=== PATIENT | male | born 1975 | race Caucasian/White ===

== ENCOUNTER 2016-12-06 01:11 | Emergency (ER) | payer OTHER ==
[~2016-12-06] VITALS: Ht 175.3 cm; Wt 108.4 kg
[2016-12-06 01:17] VITALS: TEMP 36.6; Ht 175.3 cm; Wt 108.4 kg
[2016-12-06 01:47] VITALS: O2SAT 95
[2016-12-06 01:50] LABS: BASO % 0.3 %; BASO ABS # 0.03 K/uL (0-0.2); COMPLETE YES; EOS % 1.8 %; HEMATOCRIT 41.9 % (42-52); IG% 0.2 %; LYMPH % 23.9 %; LYMPH ABS # 2.23 K/uL (1.2-3.4); MEAN CORPUSCULAR HEMOGLOBIN 29.6 pg (25-34); MEAN CORPUSCULAR HGB CONC 34.8 g/dl (32-36); MEAN PLATELET VOLUME 11.2 fL (7.4-10.4); MONO % 8.8 %; PLATELET COUNT 201 K/uL (130-400); RED BLOOD COUNT 4.93 M/uL (4.7-6.1); WHITE BLOOD COUNT 9.32 K/uL (4.8-10.8)
[2016-12-06 02:19] LABS: ALT/SGPT 73 U/L (12-78); AST/SGOT 35 U/L (15-37); BLOOD UREA NITROGEN 22 mg/dl (7-18); BUN/CREATININE RATIO 14.7 (10-20); CALCIUM 9.3 mg/dl (8.5-10.1); CARBON DIOXIDE 28 mmol/L (21-32); CHLORIDE 104 mmol/L (98-107); GLUCOSE 153 mg/dl (70-99); MAGNESIUM 1.7 mg/dl (1.8-2.4); POTASSIUM 3.5 mmol/L (3.5-5.1); SODIUM 141 mmol/L (136-145)
[2016-12-06] MEDS ORDERED: ONDANSETRON INJ 2 MG/ML 2 ML VIAL IV STA (02:22)
[2016-12-06] MEDS ORDERED: MoRPHine SULFATE 4 MG/ML 1 ML CARP\\VIAL IV STA (02:22)
[2016-12-06 02:27] LABS: ALKALINE PHOSPHATASE 73 U/L (45-117); CKMB/CK RATIO 0.8 (0-3.0)
[2016-12-06] MEDS ORDERED: LSN40 PO (02:29)
[2016-12-06] MEDS ORDERED: METF-384 PO (02:29)
[2016-12-06] MEDS ORDERED: PRLSR20 PO (02:29)
[2016-12-06] MEDS ORDERED: FLUO20CA35 PO (02:29)
[2016-12-06] MEDS ORDERED: GLIP10TA3 PO (02:29)
[2016-12-06] MEDS ORDERED: POTA1TAB97 PO (02:29)
[2016-12-06] MEDS ORDERED: ATOR-26 PO (02:29)
[2016-12-06] MEDS ORDERED: GABA-113 PO (02:29)
[2016-12-06] MEDS ORDERED: ATEN-171 PO (02:33)
[2016-12-06] MEDS ORDERED: AMLO10TA2 PO (02:33)
[2016-12-06] MEDS ORDERED: PRAZ1CAP10 PO (02:33)
[2016-12-06] MEDS ORDERED: OXYC1CAP5 PO (02:33)
[2016-12-06] MEDS ORDERED: MIRT15TA PO (02:33)
[2016-12-06] MEDS ORDERED: NZRCR TOP (02:38)
[2016-12-06] MEDS ORDERED: HYDR1OIN TOP (02:38)
[2016-12-06 03:13] VITALS: BP 134/72; PULSE 78; O2SAT 98
--- NOTE | 2016-12-06 03:17 | EMERGENCY ROOM VISIT NOTE ---
History First contact with patient: :27 Chief Complaint: SYNCOPE Stated Complaint: SYNCOPE Nursing Triage Summary: see triage note History of Present Illness The patient is a 41 year old male who presents to the Emergency Room with complaints of recurrent syncope for the past 4 years who tonight had a syncopal episode and hit his head and back. He states when he passed out he was mildly confused afterwards. He is on chronic narcotics for his pain. Patient had an extensive workup and states they're unsure why he keeps on having syncopal episodes. He does have severe PTSD and TBI from the . He follows at the [facility]. Patient went to [facility] earlier and was dissatisfied with their care and came here. He had a CT scan and blood work. He states his creatinine normally runs around 1.5. Patient complains of a headache and upper back pain. Patient denies neck pain, spinal pain, numbness, tingling, abdominal pain, fever, chills. Patient states 2 weeks ago he hit his head 3 times in a row and had a severe headache after that. He had a negative CT scan than too. He's had multiple CT scans in the past. Review of Systems See HPI for pertinent positives & negatives. A total of 10 systems reviewed and were otherwise negative. Past Medical/Surgical History PTSD, TBI, syncope, diabetes, renal insufficiency Social History Smoking Status: Never Smoker Smokeless Tobacco Use: No Drug Use: none Marital Status: Housing Status: lives with family Occupation Status: disabled Current/Historical Medications Scheduled Amlodipine Besylate (Norvasc), 10 MG PO HS Atenolol/Chlorthalidone (Tenoretic 50 Mg/25 Mg), 1 TAB PO BID Atorvastatin (Lipitor), 40 MG PO HS Fluoxetine (Prozac), 40 MG PO QAM Gabapentin (Neurontin), 300 MG PO TID Glipizide (Glucotrol), 10 MG PO BID Hydrophilic Ointment (Hydrophilic), 1 AU TOP BID Ketoconazole (Ketoconazole), 1 APPLN TOP BID Lisinopril (Lisinopril), 40 MG PO BID Metformin Hcl (Glucophage), 1,000 MG PO BID Mirtazapine (Remeron), 7.5 MG PO HS Omeprazole (Prilosec), 20 MG PO BID Oxycodone Hcl (Oxycodone Hcl), 10 MG PO QID Potassium Chloride (K-Tab), 20 MEQ PO TID Prazosin Hcl (Prazosin), 1 MG PO QAM Allergies Coded Allergies: No Known Allergies (Unverified , 12/06/16) Physical Exam Vital Signs Date Time Temp Pulse Resp B/P Pulse Ox O2 Delivery O2 Flow Rate FiO2 12/06/16 01:47 95 Room Air 12/06/16 01:47 95 Room Air 12/06/16 01:29 61 12/06/16 01:17 36.6 57 20 134/85 96 Room Air Physical Exam PHYSICAL EXAM: VITALS: Vitals are noted on the nurse's note and reviewed by myself. Vital signs stable. GENERAL: Pleasant male answering questions appropriately, in no acute distress, nondiaphoretic, well-developed well-nourished. SKIN: The skin was without obvious lacerations or abrasions. Capillary reflex less than 2 seconds. HEAD: Normocephalic atraumatic. EARS: External auditory canals clear, tympanic membranes pearly ernst without erythema or effusion bilaterally. No hemotympanums. No cho sign. No mastoid tenderness. EYES: Pupils equal round and reactive to light and accommodation. Conjunctivae without injection, sclerae without icterus. Extraocular movements intact. NOSE: Patent, turbinates without inflammation or discharge. No sinus tenderness. No septal hematoma or bleeding. FACE: No facial bone tenderness. Full range of motion of the jaw without tenderness. MOUTH: Mucous membranes moist. Pharynx without erythema or exudate. Uvula midline. Airway patent. Tongue does not deviate. NECK: Supple without nuchal rigidity. Cervical spine is nontender. Full range of motion of the neck without tenderness. No JVD. HEART: Regular rate and rhythm without murmurs gallops or rubs. LUNGS: Clear to auscultation bilaterally without wheezes, rales or rhonchi. No dullness to percussion. No retractions or accessory muscle use. No chest wall tenderness. ABDOMEN: Positive bowel sounds x 4. Normal tympanic percussion. Soft, nontender, without masses or organomegaly. No guarding or rebound tenderness. MUSCULOSKELETAL: No tenderness of the thoracic or lumbar spine. No tenderness with pelvic rocking. Full range of motion without tenderness to palpation in all extremities. Normal gait. Strength 5/5 throughout. Peripheral pulses 2+. NEURO: Patient was alert and oriented to person place and time. Normal Mini- Mental status exam. Normal sensation to light and sharp touch. Negative Romberg and pronator drift. Cerebellar function intact. No focal neurological deficits. Medical Decision & Procedures Laboratory Results 12/06/16 01:40 Red Blood Count 4.93, Mean Corpuscular Volume 85.0, Mean Corpuscular Hemoglobin 29.6, Mean Corpuscular Hemoglobin Concent 34.8, Mean Platelet Volume 11.2, Neutrophils (%) (Auto) 65.0, Lymphocytes (%) (Auto) 23.9, Monocytes (%) (Auto) 8.8, Eosinophils (%) (Auto) 1.8, Basophils (%) (Auto) 0.3, Neutrophils # (Auto) 6.05, Lymphocytes # (Auto) 2.23, Monocytes # (Auto) 0.82, Eosinophils # (Auto) 0.17, Basophils # (Auto) 0.03 12/06/16 01:40 Test 12/06/16 01:40 White Blood Count 9.32 K/uL (4.8-10.8) Red Blood Count 4.93 M/uL (4.7-6.1) Hemoglobin 14.6 g/dL (14.0-18.0) Hematocrit 41.9 % (42-52) Mean Corpuscular Volume 85.0 fL (80-100) Mean Corpuscular Hemoglobin 29.6 pg (25-34) Mean Corpuscular Hemoglobin Concent 34.8 g/dl (32-36) Platelet Count 201 K/uL (130-400) Mean Platelet Volume 11.2 fL (7.4-10.4) Neutrophils (%) (Auto) 65.0 % Lymphocytes (%) (Auto) 23.9 % Monocytes (%) (Auto) 8.8 % Eosinophils (%) (Auto) 1.8 % Basophils (%) (Auto) 0.3 % Neutrophils # (Auto) 6.05 K/uL (1.4-6.5) Lymphocytes # (Auto) 2.23 K/uL (1.2-3.4) Monocytes # (Auto) 0.82 K/uL (0.11-0.59) Eosinophils # (Auto) 0.17 K/uL (0-0.5) Basophils # (Auto) 0.03 K/uL (0-0.2) RDW Standard Deviation 41.0 fL (36.4-46.3) RDW Coefficient of Variation 13.3 % (11.5-14.5) Immature Granulocyte % (Auto) 0.2 % Immature Granulocyte # (Auto) 0.02 K/uL (0.00-0.02) Anion Gap 9.0 mmol/L (3-11) Est Creatinine Clear Calc Drug Dose 77.1 ml/min Estimated GFR () 65.2 Estimated GFR (Non- 56.2 BUN/Creatinine Ratio 14.7 (10-20) Calcium Level 9.3 mg/dl (8.5-10.1) Magnesium Level 1.7 mg/dl (1.8-2.4) Total Bilirubin 0.4 mg/dl (0.2-1) Direct Bilirubin 0.1 mg/dl (0-0.2) Aspartate Amino Transf (AST/SGOT) 35 U/L (15-37) Alanine Aminotransferase (ALT/SGPT) 73 U/L (12-78) Alkaline Phosphatase 73 U/L (45-117) Total Creatine Kinase 349 U/L (39-308) Creatine Kinase MB 2.9 ng/ml (0.5-3.6) Creatine Kinase MB Ratio 0.8 (0-3.0) Troponin I < 0.015 ng/ml (0-0.045) Total Protein 7.9 gm/dl (6.4-8.2) Albumin 4.1 gm/dl (3.4-5.0) Lipase 243 U/L (73-393) Thyroid Stimulating Hormone (TSH) 1.070 uIu/ml (0.300-4.500) Medications Administered Medications (Trade) Dose Ordered Sig/James Route Start Time Stop Time Status Last Admin Dose Admin Morphine Sulfate (MoRPHine SULFATE INJ) 4 mg NOW STAT IV 12/06/16 02:22 12/06/16 02:24 DC 12/06/16 02:38 4 MG Ondansetron HCl (Zofran Inj) 4 mg NOW STAT IV 12/06/16 02:22 12/06/16 02:24 DC 12/06/16 02:38 4 MG ED Course Prior records/ancillary studies reviewed. Triage Nursing notes reviewed. Additional history obtained from family. The patient's history was concerning for traumatic head injury Differential diagnosis: Etiologies such as concussion, contusion, fracture, subdural hematoma, epidural hematoma, intraparenchymal hemorrhage, cardiac arrhythmia, PA, vasovagal syndrome, aortic stenosis, pulmonary stenosis, hypertrophic cardiomyopathy, mitral valve prolapse, prolonged QT syndrome, sick sinus syndrome, drug toxicity , tension pneumothorax, cardiopulmonary syncope, pulmonary vascular disease, basilar artery insufficiency, subclavian steal syndrome, migraine, carotid sinus syndrome, orthostatic hypotension, dehydration, hyperventilation, psychiatric causes, as well as other traumatic pathologies were entertained. Physical examination findings: As above. ER treatment provided: Morphine Zofran ODT On reassessment the patient felt better. Diagnostics interpreted by me: ECG: Normal sinus, normal intervals, no acute ST-T wave changes. Impression normal sinus interpreted by myself The labs revealed a creatinine 1.5 per records from [place] and from patient knowing his current creatinine. Imaging studies: CT of the brain from [place] shows no acute fracture or bleed. I did obtain the records from the [facility]. Patient had a negative CAT scan of the head and laboratory workup. It appears the patient has a concussion and has expanded another syncopal episode. Patient was strongly encouraged to follow-up with the [facility] neurologist and given information on the concussion clinic here in town. Patient had a normal neurological exam. He is well-appearing. He requested to leave. He was neurovascularly and neurologically intact. Patient had no other injuries noted and was well-appearing. He requested to leave and I felt this is reasonable. He did not have an acute abdomen on exam. No other injuries are noted. His discharged home with his mother driving. Patient does not currently drive. He is disabled from his TBI and PTSD from the . By the evaluation outlined above emergent etiologies such as fracture, subdural hematoma, epidural hematoma, intraparenchymal hemorrhage, as well as others were deemed relatively unlikely. The pt informed about the findings as listed above. All questions were answered and pleased with the treatment. Return instructions were outlined and the patient was discharged in stable condition. Case reviewed with my attending Referral: The patient was referred back to their primary care physician for follow-up in 2 to 3 days for a recheck of the current condition. Medical Decision As above Impression Primary Impression: Concussion Additional Impression: Syncope Departure Information Dispostion Home / Self-Care Condition GOOD Forms HOME CARE DOCUMENTATION FORM, IMPORTANT VISIT INFORMATION Patient Instructions Concussion, My [facility] Additional Instructions [facility] in a week or 2, call for an appointment. Update your TBI screening. Notify the [facility]. Continue current medications. Rest. Stay well hydrated. Read head injury handout and return for any symptoms. Tylenol 1000 mg as needed for pain (Maximum 3000 mg Tylenol in 24 hr period). Avoid alcohol and contact sports/activities for one week and follow up with family doctor prior to returning to these activities if still symptomatic. Ice and elevate head. If your symptoms persist more than a week then follow up with the concussion clinic. Call [phone]. Return to ER sooner for headache, fevers, confusion, worsening signs or symptoms or as needed. Problem Qualifiers Primary Impression: Concussion Encounter type: initial encounter Loss of consciousness presence/duration: with LOC of 30 min or less Qualified Codes: S06.0X1A - Concussion with loss of consciousness of 30 minutes or less, initial encounter Additional Impression: Syncope Syncope type: unspecified Qualified Codes: R55 - Syncope and collapse
--- NOTE | 2016-12-06 07:16 | DIAGNOSTIC IMAGING REPORT ---
CHEST ONE VIEW PORTABLE CLINICAL HISTORY: Chest pain. Syncope. COMPARISON STUDY: No previous studies for comparison. FINDINGS: Lung volumes are normal. Lungs are clear. There is no pneumothorax or pleural effusion. Cardiac size is normal. Mediastinal contours are normal. There is no evidence of pulmonary edema. IMPRESSION: No acute cardiopulmonary findings. Electronically signed by: Taiwo Vaughn M.D. 12/06/2016 7:14 AM Dictated Date/Time: 12/06/2016 7:13 AM
== END 2016-12-06 03:14 | disposition home or self-care (01) ==
LOC: C.EDB 01:14 → MERGE 01:14 → C.EDB 03:14
DX: S06.0X9A Concussion with loss of consciousness of unspecified duration, initial encounter (principal); W19.XXXA Unspecified fall, initial encounter; R55 Syncope and collapse; E11.9 Type 2 diabetes mellitus without complications; F43.10 Post-traumatic stress disorder, unspecified; Z87.820 Personal history of traumatic brain injury; Z79.84 Long term (current) use of oral hypoglycemic drugs; Z79.899 Other long term (current) drug therapy

== ENCOUNTER 2016-12-29 22:25 | Emergency (ER) | payer OTHER ==
[~2016-12-29] VITALS: Ht 175.3 cm; Wt 110.5 kg
[~2016-12-29 22:25] MED LIST: AMLO10TA2 PO; ATEN-171 PO; ATOR-26 PO; FLUO20CA35 PO; GABA-113 PO; GLIP10TA3 PO; HYDR1OIN TOP; LSN40 PO; METF-384 PO; MIRT15TA PO; NZRCR TOP; OXYC1CAP5 PO; POTA1TAB97 PO; PRAZ1CAP10 PO; PRLSR20 PO
[2016-12-29 22:44] VITALS: Ht 175.3 cm; Wt 110.5 kg
--- NOTE | 2016-12-29 23:34 | EMERGENCY ROOM VISIT NOTE ---
History Report prepared by Lexa: Tomeka Fernandez Under the Supervision of: Dr. Guadalupe Spring D.O. First contact with patient: 23:02 Chief Complaint: FEVER Stated Complaint: COUGHING,WHEEZING,FEVER 100+,CHILLS History of Present Illness The patient is a 41 year old male who presents to the Emergency Room with complaints of a persistent cough that began four days ago. The patient additionally notes a persistent fever and chills. He states that he has coughed so hard that he becomes dizzy. The patient associates chest pain secondary to his persistent cough. He denies any sore throat. The patient denies any difficulty moving his bowels or bladder. He denies any tobacco use. The patient states that he brings up yellow-green sputum with his cough. The patient notes a history of hypertension, diabetes, and syncope. Source of History: patient Onset: four days ago Position: other (global) Quality: other (cough) Timing: other (persistent) Associated Symptoms: + chest pain, + chills, + fevers, No urinary symptoms Note: Associated Symptoms: dizziness, productive sputum yellow-green. Review of Systems See HPI for pertinent positives & negatives. A total of 10 systems reviewed and were otherwise negative. Past Medical & Surgical Medical Problems: (1) Diabetes (2) Hypertension Family History Cancer Diabetes mellitus Gallbladder disease Hypertension Social History Smoking Status: Never Smoker Alcohol Use: occasionally Drug Use: none Marital Status: Housing Status: lives with family Occupation Status: disabled Current/Historical Medications Scheduled Amlodipine Besylate (Norvasc), 10 MG PO HS Atenolol/Chlorthalidone (Tenoretic 50 Mg/25 Mg), 1 TAB PO BID Atorvastatin (Lipitor), 40 MG PO HS Fluoxetine (Prozac), 40 MG PO QAM Gabapentin (Neurontin), 300 MG PO TID Glipizide (Glucotrol), 10 MG PO BID Hydrophilic Ointment (Hydrophilic), 1 AU TOP BID Ketoconazole (Ketoconazole), 1 APPLN TOP BID Lisinopril (Lisinopril), 40 MG PO BID Metformin Hcl (Glucophage), 1,000 MG PO BID Mirtazapine (Remeron), 7.5 MG PO HS Omeprazole (Prilosec), 20 MG PO BID Oxycodone Hcl (Oxycodone Hcl), 10 MG PO QID Potassium Chloride (K-Tab), 20 MEQ PO TID Prazosin Hcl (Prazosin), 1 MG PO QAM Allergies Coded Allergies: No Known Allergies (Unverified , 12/07/16) Physical Exam Vital Signs Date Time Temp Pulse Resp B/P Pulse Ox O2 Delivery O2 Flow Rate FiO2 12/30/16 01:25 36.9 75 20 107/60 93 12/29/16 22:44 36.5 75 16 109/67 95 Room Air Physical Exam HEENT: Head - normocephalic and atraumatic Pupils are equal, round, and reactive to light. Extraocular eye muscles are intact, and sclera are anicteric. Nose - moist nasal mucosa without discharge. Mouth - moist buccal mucosa. Oropharynx is nonerythematous and there is no tonsillar exudate or edema noted. Ears - Normal TMs. Neck: Supple; no JVD, nuchal rigidity, or cervical lymphadenopathy. Heart: Regular rate and rhythm. There is a normal S1 and S2 with no murmurs, clicks, or gallops appreciated. Lungs: Rhonchi noted in both bases. No wheezes or rales. Abdomen: Soft, completely nontender, nondistended, with good bowel sounds. There are no palpable pulsatile masses or hepatosplenomegaly. There is no guarding, rigidity, or rebound noted. Extremities: Right knee has a scar that is excoriated. No evidence of cyanosis , clubbing, or edema. There are easily palpable peripheral pulses. Skin: warm and dry with good turgor and no rashes. Medical Decision & Procedures ER Provider Diagnostic Interpretation: 2 view chest x-ray interpreted by me: Cardiomegaly, no pulmonary infiltrates, no consolidation ED Course 2332: Past medical records reviewed. The patient was evaluated in room A9A. A complete history and physical exam was performed. The patient went for chest x- ray as described above. 0046: I reevaluated the patient and he is resting comfortably. I discussed the exam findings with him and I discussed the treatment plan. I offered to prescribe a cough suppressant. He declined stating that Medicare would not cover it. He verbalized complete understanding and agreement. He is ready to go home. Medical Decision The patient is a 41 year old male who presents to the ED with a persistent cough. Differential diagnosis includes pneumonia, bronchitis, viral URI, influenza, viral illness. This is a 41-year-old male patient presents to the emergency department with a cough significant enough to cause dizziness. Both of his young children are here with the same presentation. His symptoms seemed consistent with acute bronchitis. Chest x-ray showed no evidence of a pneumonia. The patient was able to rest comfortably while here in the ER. Vital signs were stable. I encouraged him to sleep in an upright position to minimize coughing. This most likely represents an acute viral bronchitis. He was told to follow-up with his PCP if symptoms persisted and he could return to the ER symptoms worsen. Impression Primary Impression: Bronchitis Scribe Attestation The scribe's documentation has been prepared under my direction and personally reviewed by me in its entirety. I confirm that the note above accurately reflects all work, treatment, procedures, and medical decision making performed by me. Departure Information Dispostion Home / Self-Care Referrals Magaly Wilson (PCP) Forms HOME CARE DOCUMENTATION FORM, IMPORTANT VISIT INFORMATION Patient Instructions Bronchitis Acute, My [facility] Additional Instructions Rest. You may use otc meds FOR COUGH. Double check with pharmacist that they are safe with your hypertension Follow up with PCP on Monday if cough continues Return to the ER if symptoms worsen
[2016-12-30 01:25] VITALS: BP 107/60; PULSE 75; TEMP 36.9; O2SAT 93
--- NOTE | 2016-12-30 06:52 | DIAGNOSTIC IMAGING REPORT ---
CHEST 2 VIEWS ROUTINE CLINICAL HISTORY: Cough. Shortness of breath. COMPARISON STUDY: Chest radiograph December 06, 2016. FINDINGS: A 4 cm focus of consolidation within the right mid to lower lung is noted. There is also mild right midlung opacity. Left lung is clear. There is no pneumothorax or pleural effusion. Pulmonary vascularity is normal. IMPRESSION: Right mid lung consolidation suggestive of pneumonia. Electronically signed by: Taiwo Vaughn M.D. 12/30/2016 6:50 AM Dictated Date/Time: 12/30/2016 6:48 AM
--- NOTE | 2016-12-30 07:35 | EMERGENCY ROOM VISIT NOTE ---
ED Visit Note Radiology contact in the emergency department and notified of an over read from the night x-ray. There was concerns for a right mid lung consolidation. The patient had flulike symptoms on documentation. Given the history and the x-ray findings antibiotic treatment now appears to be indicated. The patient had a prescription for Augmentin 875 twice a day for 10 days called to his pharmacy by the charge nurse and the patient contacted.
== END 2016-12-30 01:25 | disposition home or self-care (01) ==
LOC: C.EDB 22:26 → C.EDA 12-30 01:25
DX: J40 Bronchitis, not specified as acute or chronic (principal); E11.9 Type 2 diabetes mellitus without complications; I10 Essential (primary) hypertension; Z79.899 Other long term (current) drug therapy; Z80.9 Family history of malignant neoplasm, unspecified; Z83.3 Family history of diabetes mellitus; Z83.79 Family history of other diseases of the digestive system; Z82.49 Family history of ischemic heart disease and other diseases of the circulatory system

== ENCOUNTER 2017-05-03 21:16 | Emergency (ER) | payer OTHER ==
[~2017-05-03] VITALS: Ht 175.3 cm; Wt 106.9 kg
[2017-05-03 21:19] VITALS: TEMP 36.4; Ht 175.3 cm; Wt 106.9 kg
[2017-05-03] MEDS ORDERED: SODIUM CHLORIDE 0.9% 1000ML 1,000 ML IV STA (21:30)
[2017-05-03 21:54] VITALS: O2SAT 98
[2017-05-03 22:08] LABS: BASO % 0.4 %; BASO ABS # 0.04 K/uL (0-0.2); COMPLETE YES; EOS % 3.3 %; IG% 0.2 %; LYMPH % 18.4 %; LYMPH ABS # 1.96 K/uL (1.2-3.4); MEAN CELL VOLUME 85.1 fL (80-100); MEAN CORPUSCULAR HEMOGLOBIN 29.9 pg (25-34); MEAN CORPUSCULAR HGB CONC 35.1 g/dl (32-36); MEAN PLATELET VOLUME 11.2 fL (7.4-10.4); MONO % 8.5 %; NEUT % 69.2 %; PLATELET COUNT 188 K/uL (130-400); RED BLOOD COUNT 4.82 M/uL (4.7-6.1); WHITE BLOOD COUNT 10.65 K/uL (4.8-10.8)
[2017-05-03] MEDS ORDERED: IBUP600T44 PO (22:16)
[2017-05-03 22:52] LABS: ALKALINE PHOSPHATASE 72 U/L (45-117); ALT/SGPT 55 U/L (12-78); AST/SGOT 29 U/L (15-37); BLOOD UREA NITROGEN 31 mg/dl (7-18); BUN/CREATININE RATIO 15.5 (10-20); CALCIUM 8.6 mg/dl (8.5-10.1); CARBON DIOXIDE 28 mmol/L (21-32); CHLORIDE 99 mmol/L (98-107); POTASSIUM 3.2 mmol/L (3.5-5.1); SODIUM 135 mmol/L (136-145)
[2017-05-03] MEDS ORDERED: POTASSIUM CHLORIDE 10 MEQ TABCR PO STA (23:04)
[2017-05-03 23:05] LABS: URINE APPEARANCE CLEAR (CLEAR); URINE BILIRUBIN NEG (NEG); URINE COLOR YELLOW; URINE NITRITE NEG (NEG); URINE PH 5.5 (4.5-7.5); URINE SPECIFIC GRAVITY 1.023 (1.000-1.030); UROBILINOGEN NEG (NEG)
--- NOTE | 2017-05-03 23:16 | DIAGNOSTIC IMAGING REPORT ---
CT OF THE HEAD WITHOUT CONTRAST CLINICAL HISTORY: Head injury. Syncope. COMPARISON STUDY: No previous studies for comparison. CT DOSE: 537.48 mGy.cm TECHNIQUE: Helical axial images of the head were obtained without IV contrast. Automated exposure control was utilized for the study. A dose lowering technique was utilized adhering to the principles of ALARA. FINDINGS: No acute intracranial hemorrhage, midline shift or mass effect is present. Ventricular system is normal. Basilar cisterns are patent. There are no extra-axial collections. Bernal-white differentiation is maintained. There are no findings to suggest acute dural sinus thrombosis or acute territorial infarct. There is moderate mucosal thickening of the ethmoid sinuses. There is no calvarial fracture. Left preauricular surgical clips are noted. IMPRESSION: 1. No acute intracranial findings. 2. Moderate ethmoid sinus mucosal thickening. Electronically signed by: Taiwo Vaughn M.D. 05/03/2017 11:15 PM Dictated Date/Time: 05/03/2017 11:12 PM
[2017-05-03 23:20] LABS: GLUCOSE 330 mg/dl (70-99)
[2017-05-03 23:20] LABS: MANUAL MICROSCOPIC REQUIRED? NO; REVIEW REQ? NO
--- NOTE | 2017-05-03 23:22 | EMERGENCY ROOM VISIT NOTE ---
History Report prepared by Lexa: Vidal Galvan Under the Supervision of: Dr. Tj Nogueira D.O. First contact with patient: 21:26 Chief Complaint: SYNCOPE Stated Complaint: SYNCOPE, DIZZY, PAIN IN KIDNEY, NO URINATION TODAY History of Present Illness The patient is a 42 year old male who presents to the Emergency Room with complaints of intermittent episodes of dizziness beginning today. He states that he typically passes out once every day, but this is normal for him. He states that he passed out twice today. The patient follows with a neurologist for these episodes, though no source has currently been identified. He hit his head during the fall today. He also complains of low back pain beginning a few weeks ago. The patient notes that he fell and landed on his tailbone a few weeks ago and feels that his could be the source of his pain. He also notes that he hasn't urinated today. Per mother, the patient is at his mental baseline and doesn't appear to have any neurologic problems. Source of History: patient Onset: Today Quality: other (dizziness) Timing: intermittent Associated Symptoms: + LOC, + back pain (low), + urinary symptoms (no urination today) Review of Systems See HPI for pertinent positives and negatives. A total of ten systems were reviewed and were otherwise negative. Past Medical & Surgical Medical Problems: (1) Diabetes (2) Hypertension Family History Cancer Diabetes mellitus Gallbladder disease Hypertension Social History Smoking Status: Never Smoker Alcohol Use: occasionally Drug Use: none Marital Status: Housing Status: lives with family Occupation Status: disabled Current/Historical Medications Scheduled Amlodipine Besylate (Norvasc), 10 MG PO HS Atenolol/Chlorthalidone (Tenoretic 50 Mg/25 Mg), 1 TAB PO BID Atorvastatin (Lipitor), 40 MG PO HS Fluoxetine (Prozac), 40 MG PO QAM Gabapentin (Neurontin), 300 MG PO TID Glipizide (Glucotrol), 10 MG PO BID Lisinopril (Lisinopril), 40 MG PO BID Metformin Hcl (Glucophage), 1,000 MG PO BID Mirtazapine (Remeron), 7.5 MG PO HS Omeprazole (Prilosec), 20 MG PO BID Oxycodone Hcl (Oxycodone Hcl), 10 MG PO QID Potassium Chloride (K-Tab), 20 MEQ PO TID Prazosin Hcl (Prazosin), 1 MG PO QAM Scheduled PRN Hydrophilic Ointment (Hydrophilic), 1 AU TOP BID PRN for Ibuprofen (Motrin), 1,200 MG PO TID PRN for Pain Ketoconazole (Ketoconazole), 1 APPLN TOP BID PRN for Allergies Coded Allergies: No Known Allergies (Unverified , 12/07/16) Physical Exam Vital Signs Date Time Temp Pulse Resp B/P (MAP) Pulse Ox O2 Delivery O2 Flow Rate FiO2 05/03/17 21:54 98 Room Air 05/03/17 21:19 36.4 65 18 156/98 97 Room Air Physical Exam GENERAL: Awake, alert, well-appearing, in no distress HENT: Normocephalic, right frontal contusion. Oropharynx unremarkable. EYES: Normal conjunctiva. Sclera non-icteric. NECK: Supple. No nuchal rigidity. FROM. No JVD. RESPIRATORY: Clear to auscultation. CARDIAC: Regular rate, normal rhythm. Extremities warm and well perfused. Pulses equal. ABDOMEN: Soft, non-distended. No tenderness to palpation. No rebound or guarding. No masses. RECTAL: Deferred. MUSCULOSKELETAL: Chest examination reveals no tenderness. The back is symmetrical on inspection without obvious abnormality. There is no CVA tenderness to palpation. No joint edema. LOWER EXTREMITIES: Calves are equal size bilaterally and non-tender. No edema. No discoloration. NEURO: Normal sensorium. No sensory or motor deficits noted. SKIN: No rash or jaundice noted. Medical Decision & Procedures ER Provider Diagnostic Interpretation: CT: Radiology results as stated below per my review and radiologist interpretation CT OF THE HEAD WITHOUT CONTRAST FINDINGS: No acute intracranial hemorrhage, midline shift or mass effect is present. Ventricular system is normal. Basilar cisterns are patent. There are no extra-axial collections. Bernal-white differentiation is maintained. There are no findings to suggest acute dural sinus thrombosis or acute territorial infarct. There is moderate mucosal thickening of the ethmoid sinuses. There is no calvarial fracture. Left preauricular surgical clips are noted. IMPRESSION: 1. No acute intracranial findings. 2. Moderate ethmoid sinus mucosal thickening. Electronically signed by: Taiwo Vaughn M.D. Laboratory Results 05/03/17 21:57 Red Blood Count 4.82, Mean Corpuscular Volume 85.1, Mean Corpuscular Hemoglobin 29.9, Mean Corpuscular Hemoglobin Concent 35.1, Mean Platelet Volume 11.2, Neutrophils (%) (Auto) 69.2, Lymphocytes (%) (Auto) 18.4, Monocytes (%) (Auto) 8.5, Eosinophils (%) (Auto) 3.3, Basophils (%) (Auto) 0.4, Neutrophils # (Auto) 7.37, Lymphocytes # (Auto) 1.96, Monocytes # (Auto) 0.91, Eosinophils # (Auto) 0.35, Basophils # (Auto) 0.04 05/03/17 21:57 Test 05/03/17 21:56 05/03/17 21:57 05/03/17 22:30 Bedside Glucose 312 mg/dl (70-99) White Blood Count 10.65 K/uL (4.8-10.8) Red Blood Count 4.82 M/uL (4.7-6.1) Hemoglobin 14.4 g/dL (14.0-18.0) Hematocrit 41.0 % (42-52) Mean Corpuscular Volume 85.1 fL (80-100) Mean Corpuscular Hemoglobin 29.9 pg (25-34) Mean Corpuscular Hemoglobin Concent 35.1 g/dl (32-36) Platelet Count 188 K/uL (130-400) Mean Platelet Volume 11.2 fL (7.4-10.4) Neutrophils (%) (Auto) 69.2 % Lymphocytes (%) (Auto) 18.4 % Monocytes (%) (Auto) 8.5 % Eosinophils (%) (Auto) 3.3 % Basophils (%) (Auto) 0.4 % Neutrophils # (Auto) 7.37 K/uL (1.4-6.5) Lymphocytes # (Auto) 1.96 K/uL (1.2-3.4) Monocytes # (Auto) 0.91 K/uL (0.11-0.59) Eosinophils # (Auto) 0.35 K/uL (0-0.5) Basophils # (Auto) 0.04 K/uL (0-0.2) RDW Standard Deviation 40.0 fL (36.4-46.3) RDW Coefficient of Variation 12.9 % (11.5-14.5) Immature Granulocyte % (Auto) 0.2 % Immature Granulocyte # (Auto) 0.02 K/uL (0.00-0.02) Anion Gap 8.0 mmol/L (3-11) Est Creatinine Clear Calc Drug Dose 56.8 ml/min Estimated GFR () 45.7 Estimated GFR (Non- 39.4 BUN/Creatinine Ratio 15.5 (10-20) Calcium Level 8.6 mg/dl (8.5-10.1) Total Bilirubin 0.3 mg/dl (0.2-1) Direct Bilirubin < 0.1 mg/dl (0-0.2) Aspartate Amino Transf (AST/SGOT) 29 U/L (15-37) Alanine Aminotransferase (ALT/SGPT) 55 U/L (12-78) Alkaline Phosphatase 72 U/L (45-117) Total Protein 7.4 gm/dl (6.4-8.2) Albumin 3.6 gm/dl (3.4-5.0) Beta-Hydroxybutyric Acid 0.70 mg/dL (0.2-2.81) Urine Color YELLOW Urine Appearance CLEAR (CLEAR) Urine pH 5.5 (4.5-7.5) Urine Specific [place] 1.023 (1.000-1.030) Urine Protein NEG (NEG) Urine Glucose (UA) 2+ (NEG) Urine Ketones NEG (NEG) Urine Occult Blood NEG (NEG) Urine Nitrite NEG (NEG) Urine Bilirubin NEG (NEG) Urine Urobilinogen NEG (NEG) Urine Leukocyte Esterase NEG (NEG) Laboratory results reviewed by me Medications Administered Medications (Trade) Dose Ordered Sig/James Route Start Time Stop Time Status Last Admin Dose Admin Sodium Chloride 1,000 ml @ 999 mls/hr Q1H1M STAT IV 05/03/17 21:30 05/03/17 22:30 DC 05/03/17 22:44 999 MLS/HR ECG Indication: other (dizziness) Rate (beats per minute): 59 Rhythm: sinus rhythm Findings: other (Non-specific T-wave abnormality. Normal intervals. Normal axis. ) ED Course 2126: The patient was evaluated in room B9. A complete history and physical exam was performed. 2129: Ordered Sodium Chloride 1000 ml @ 999 mls/hr IV. 2303: Ordered Klor-Con M10 40 meq PO. 2320: I reevaluated the patient. His reexamination is nonfocal. Discussed results and discharge instructions: he verbalized understanding and agreement. The patient is ready for discharge. Medical Decision Differential diagnosis: Etiologies such as vasovagal event, infection, hypoglycemia, electrolyte abnormalities, cardiac sources, intracerebral event, toxicologic, neurologic, as well as others were entertained. Repeat examination patient is nonfocal GCS 15, patient has a chronic history of syncope for which she is being worked up extensively at the [facility]. Patient's CT was negative for any acute intracranial event. Patient's creatinine has increased since prior labs from 1.5-2.0 patient was given a liter of IV fluids potassium is 3.2 eating he had potassium replaced here. Reassessed the patient discussed this evaluation with himself and his mother who is at bedside. Head Trauma GCS Score: 15 Impression Primary Impression: Syncope Additional Impressions: Renal insufficiency Closed head injury Scribe Attestation The scribe's documentation has been prepared under my direction and personally reviewed by me in its entirety. I confirm that the note above accurately reflects all work, treatment, procedures, and medical decision making performed by me. Departure Information Dispostion Home / Self-Care Referrals Magaly Wilson (PCP) Patient Instructions ED Head Injury Closed, Fainting (Syncope) - [facility], [facility] Health Problem Qualifiers
[2017-05-03 23:30] VITALS: BP 134/87; PULSE 60; O2SAT 96
== END 2017-05-03 23:30 | disposition home or self-care (01) ==
LOC: C.EDB 21:17
DX: R55 Syncope and collapse (principal); S09.90XA Unspecified injury of head, initial encounter; W19.XXXA Unspecified fall, initial encounter; N28.9 Disorder of kidney and ureter, unspecified; I10 Essential (primary) hypertension; E11.9 Type 2 diabetes mellitus without complications; Z79.84 Long term (current) use of oral hypoglycemic drugs; Z79.899 Other long term (current) drug therapy; Z80.9 Family history of malignant neoplasm, unspecified; Z83.3 Family history of diabetes mellitus; Z83.79 Family history of other diseases of the digestive system; Z82.49 Family history of ischemic heart disease and other diseases of the circulatory system